=== PATIENT | female | born 1990 | race Caucasian/White ===

== ENCOUNTER 2020-10-08 07:56 | Outpatient (CLI) | payer BC ==
[2020-10-08] MEDS ORDERED: Iopamidol-370 76% 500 ML 1 ML ONE (11:46)
== END 2020-10-08 07:57 | disposition home or self-care (01) ==
LOC: BICCT 07:56
PROVIDERS: ATTEND Internal Medicine Gastroenterology
DX: K76.9 Liver disease, unspecified (principal); R16.0 Hepatomegaly, not elsewhere classified; N28.89 Other specified disorders of kidney and ureter
CPT/HCPCS: 74170; Q9967